=== PATIENT | female | born 1990 | race Caucasian/White ===

== ENCOUNTER 2024-11-30 23:25 | Inpatient (IN) | payer OTHER, SELFPAY ==
[2024-11-30 23:43] VITALS: BMI 33.9
[2024-12-01] MEDS ORDERED: hydrALAZINE 20 MG/ML VIAL SLOW IVP PRN ×3 (00:20→14:00)
[2024-12-01] MEDS ORDERED: Lidocaine 1% (PF) 30 ML VIAL SC PRN (02:09)
[2024-12-01] MEDS ORDERED: Ondansetron PF 4 MG/2 ML Vial IVP PRN ×3 (02:09→14:00)
[2024-12-01] MEDS ORDERED: Tranexamic Acid 1,000 MG/10 ML VIAL IVP PRN (02:11)
[2024-12-01] MEDS ORDERED: Methylergonovine 0.2 MG/ML VIAL IM PRN ×2 (02:11→14:00)
[2024-12-01] MEDS ORDERED: Diphenoxylate HCl/Atropine Tablet PO PRN ×2 (02:11)
[2024-12-01] MEDS ORDERED: Carboprost 250 MCG/ML AMP IM PRN (02:11)
[2024-12-01] MEDS ORDERED: Ibuprofen 800 MG TAB PO PRN (02:11)
[2024-12-01] MEDS ORDERED: Oxytocin 30 units/NS 500 ML 500 ML IV SCH ×2 (02:15→14:00)
[2024-12-01 03:14] LABS: Hematocrit 37.7 % (34.9-44.5); Hemoglobin 12.0 g/dL (12.0-15.5); Mean Corpuscular Hemoglobin 28.5 pg (27.0-33.0); Mean Corpuscular Volume 89.5 fL (81.6-98.3); Platelet Count 171 10x3/uL (150-450); Red Blood Cell (RBC) Count 4.21 10x6/uL (3.90-5.03); White Blood Cell (WBC) Count 10.70 10x3/uL (3.5-10.5)
[2024-12-01 03:46] LABS: Syphilis Antibody Index 0.04 S/CO (<1.00 Non-Reactive)
[2024-12-01 03:47] LABS: Hep B Surf Ag - L&D Non-Reactive S/CO (NonReactive)
[2024-12-01] MEDS: fentaNYL/Ropivacaine Epidural 100 ML ONE (04:35)
[2024-12-01] MEDS ORDERED: diphenhydrAMINE 50 MG/ML VIAL IVP PRN (04:41)
[2024-12-01] MEDS ORDERED: Acetaminophen 325 MG TAB PO PRN (04:41)
[2024-12-01] MEDS ORDERED: Communication Order-Pharmacy FS SCH (04:45)
[2024-12-01] MEDS ORDERED: fentaNYL 2 mcg/Ropivacaine 0.2% Epidural 100 ML CADD EPIDURAL SCH (04:45)
[2024-12-01] MEDS: Oxytocin 30 units/NS 500 ML 500 ML IV SCH (09:18)
[2024-12-01] MEDS ORDERED: Ibuprofen 800 MG TAB PO SCH (14:00)
[2024-12-01] MEDS ORDERED: Lanolin Ointment 7 GM TUBE TOP PRN (14:00)
[2024-12-01] MEDS ORDERED: Bisacodyl 10 MG SUPP PR PRN (14:00)
[2024-12-01] MEDS ORDERED: Benzocaine-Menthol 82.5 ML CAN TOP PRN (14:00)
[2024-12-01] MEDS ORDERED: Preparation H Ointment 28 GM TUBE PR PRN (14:00)
[2024-12-01] MEDS ORDERED: diphenhydrAMINE 25 MG CAP PO PRN (14:00)
[2024-12-01] MEDS ORDERED: Milk Of Magnesia 30 ML UDCUP PO PRN (14:00)
[2024-12-01] MEDS: Ferrous Sulfate 325 MG TAB PO SCH (17:35)
[2024-12-01] MEDS: Boostrix 0.5 ML (Tdap) VIAL (>/=7 yrs of age) IM ONE (18:09)
[2024-12-01] MEDS: Ibuprofen 800 MG TAB PO SCH (18:10)
[2024-12-01] MEDS ORDERED: Bupivacaine 0.25% HCL 30 ML VIAL ONE (18:56)
[2024-12-01] MEDS: Acetaminophen 500 MG TAB PO PRN (21:26)
[2024-12-03] MEDS: Sucrose 24% 2 ML Dropette ONE (02:49)
[2024-12-03 09:00] VITALS: BP 128/86; TEMP 97.8
== END 2024-12-03 20:20 | disposition home or self-care (01) | DRG 807 ==
LOC: CSHLD 23:25 → CSHPP 12-01 17:10
PROVIDERS: ADMIT Family Medicine; ATTEND Family Medicine
PROC: 10E0XZZ Delivery of Products of Conception, External Approach (ICD-10-PCS; principal; 2024-11-30)
DX: O75.89 Other specified complications of labor and delivery (principal); O62.3 Precipitate labor; Z37.1 Single stillbirth; Z3A.40 40 weeks gestation of pregnancy; Z79.899 Other long term (current) drug therapy
CPT/HCPCS: 51702; 72158; 85027; 86780; 86850; 86900; 86901; 87340; 99285; J0665; J2590